=== PATIENT | female | born 1955 | race African-American/Black ===

== ENCOUNTER 2017-03-19 12:20 | Emergency (ER) | payer OTHER ==
[2017-03-19 14:05] LABS: BASOPHIL % 0.2 % (0-2); PLATELET COUNT 192 x10^3mcL (130-400); RED CELL DISTRIBUTION WIDTH 14.2 % (11.5-14.5)
[2017-03-19 14:15] LABS: CALCIUM 11.6 mg/dL (8.5-10.1); CARBON DIOXIDE 29.4 mmol/L (21-32); CREATININE SERUM 1.6 mg/dL (0.6-1.0)
[2017-03-19 14:19] LABS: BILIRUBIN TOTAL 0.56 mg/dL (0.20-1.00); TOTAL PROTEIN, SERUM 7.1 g/dL (6.4-8.2)
[2017-03-19 14:20] LABS: ALBUMIN 3.1 g/dL (3.4-5.0)
[2017-03-19 16:07] VITALS: BP 98/65
== END 2017-03-19 16:07 | disposition home or self-care (01) ==
LOC: ED 12:20
PROVIDERS: Emergency Medicine
DX: J20.9 Acute bronchitis, unspecified (principal); E11.9 Type 2 diabetes mellitus without complications; I10 Essential (primary) hypertension; E83.52 Hypercalcemia; Z79.4 Long term (current) use of insulin
CPT/HCPCS: 36415; 82962; Q0163

== ENCOUNTER 2019-08-05 19:05 | Inpatient (IN) | payer OTHER ==
[~2019-08-05] VITALS: Ht 167.6 cm; Wt 43.5 kg
[2019-08-05 21:02] LABS: PLATELET COUNT 360 x10^3mcL (130-400)
[2019-08-05 21:08] LABS: RED CELL DISTRIBUTION WIDTH 15.9 % (11.5-14.5)
[2019-08-05 21:25] LABS: ALBUMIN 3.5 g/dL (3.4-5.0); BILIRUBIN TOTAL 0.8 mg/dL (0.20-1.00); CALCIUM 10.3 mg/dL (8.5-10.1); CREATININE SERUM 2.1 mg/dL (0.6-1.0); MAGNESIUM 1.9 mg/dL (1.8-2.4); TOTAL PROTEIN, SERUM 7.6 g/dL (6.4-8.2)
[2019-08-05 21:30] LABS: POTASSIUM SERUM 5.8 mmol/L (3.5-5.1)
[2019-08-05 21:45] LABS: BAND NEUTROPHIL 2 % (0-10); BASOPHIL 0 % (0-2); MONOCYTE 4 % (0-7); SEGMENTED NEUTROPHILS 85 % (37-75); rbc morphology (normal/abnorm) ABNORMAL (NORMAL)
[2019-08-06 00:54] LABS: CALCIUM 8.5 mg/dL (8.5-10.1); CARBON DIOXIDE 12.5 mmol/L (21-32); MAGNESIUM 1.4 mg/dL (1.8-2.4); PHOSPHOROUS 3.5 mg/dL (2.5-4.9); POTASSIUM SERUM 4.1 mmol/L (3.5-5.1)
[2019-08-06 01:19] LABS: UA SPECIFIC GRAVITY 1.015 (1.005-1.035); microscopic required? YES; urine erythrocyte TRACE (NEGATIVE)
[2019-08-06 01:28] LABS: AMPHETAMINE QUAL UR NONE DETECTED (See below)
[2019-08-06 03:30] VITALS: BP 156/55
[2019-08-06 05:21] LABS: BILIRUBIN TOTAL 0.4 mg/dL (0.20-1.00); CALCIUM 8.6 mg/dL (8.5-10.1); CARBON DIOXIDE 21.3 mmol/L (21-32); CREATININE SERUM 1.8 mg/dL (0.6-1.0); MAGNESIUM 1.3 mg/dL (1.8-2.4); PHOSPHOROUS 2.1 mg/dL (2.5-4.9); POTASSIUM SERUM 3.6 mmol/L (3.5-5.1)
[2019-08-06 05:22] LABS: ALBUMIN 2.6 g/dL (3.4-5.0); TOTAL PROTEIN, SERUM 6.1 g/dL (6.4-8.2)
[2019-08-06 07:30] VITALS: BP 144/40
[2019-08-06 08:48] LABS: CARBON DIOXIDE 24.4 mmol/L (21-32); CREATININE SERUM 1.6 mg/dL (0.6-1.0); MAGNESIUM 1.4 mg/dL (1.8-2.4); PHOSPHOROUS 2.4 mg/dL (2.5-4.9); POTASSIUM SERUM 3.5 mmol/L (3.5-5.1)
[2019-08-06 12:11] VITALS: BP 140/56
[2019-08-06 12:22] LABS: CALCIUM 8.7 mg/dL (8.5-10.1); CARBON DIOXIDE 27.3 mmol/L (21-32); CREATININE SERUM 1.3 mg/dL (0.6-1.0); MAGNESIUM 1.3 mg/dL (1.8-2.4); PHOSPHOROUS 2.7 mg/dL (2.5-4.9); POTASSIUM SERUM 3.1 mmol/L (3.5-5.1)
[2019-08-06 13:43] LABS: PLATELET COUNT 159 x10^3mcL (130-400); RED CELL DISTRIBUTION WIDTH 13.6 % (11.5-14.5)
[2019-08-06] MEDS ORDERED: METOCLOPRAMIDE H5 M1 PO (14:36)
[2019-08-06] MEDS ORDERED: PANTOPRAZOLE SO40 M1 PO (14:38)
[2019-08-06] MEDS ORDERED: PANCREAZE DR 11 EAC1 PO (14:38)
[2019-08-06] MEDS ORDERED: METHIMAZOLE10 MG PO (14:39)
[2019-08-06] MEDS ORDERED: CARAFATE1 GM/10 ML PO (14:39)
[2019-08-06] MEDS ORDERED: METOPROLOL TAR100 MG PO (14:40)
[2019-08-06] MEDS ORDERED: HUMULIN10 ML SC (14:41)
[2019-08-06] MEDS ORDERED: MIRTAZAPINE15 M2 PO (14:42)
[2019-08-06] MEDS ORDERED: MECLIZINE HYD12.5 MG PO (14:42)
[2019-08-06 15:25] LABS: BAND NEUTROPHIL 0 % (0-10); MONOCYTE 4 % (0-7); SEGMENTED NEUTROPHILS 85 % (37-75)
[2019-08-06 15:26] LABS: rbc morphology (normal/abnorm) ABNORMAL (NORMAL)
[2019-08-06 15:30] VITALS: BP 167/69
[2019-08-06 18:20] VITALS: BP 159/55
[2019-08-06 19:50] VITALS: BP 157/60
[2019-08-07 04:31] VITALS: BP 136/43
[2019-08-07 06:53] LABS: BASOPHIL % 0.1 % (0-2); PLATELET COUNT 141 x10^3mcL (130-400)
[2019-08-07 06:58] LABS: CALCIUM 8.7 mg/dL (8.5-10.1); CARBON DIOXIDE 24.4 mmol/L (21-32); CHLORIDE SERUM 115 mmol/L (98-107); CREATININE SERUM 0.8 mg/dL (0.6-1.0); GFR1 > 60 mL/min; GLUCOSE SERUM 148 mg/dL (74-106); MAGNESIUM 1.6 mg/dL (1.8-2.4); PHOSPHOROUS 2.4 mg/dL (2.5-4.9); POTASSIUM SERUM 3.6 mmol/L (3.5-5.1); SODIUM SERUM 147 mmol/L (136-145)
[2019-08-07 07:00] LABS: T3 TOTAL 1.98 ng/mL
[2019-08-07 07:16] LABS: FREE T4 2.47 ng/dL (0.76-1.46)
[2019-08-07 07:53] VITALS: BP 124/54
[2019-08-07 07:57] LABS: RED CELL DISTRIBUTION WIDTH 15.4 % (11.5-14.5)
[2019-08-07 12:05] VITALS: BP 145/43
[2019-08-07 16:25] VITALS: Ht 167.6 cm; Wt 43.5 kg
[2019-08-07 17:15] VITALS: BP 149/42
[2019-08-07 20:42] VITALS: BP 145/49
[2019-08-08 05:52] VITALS: BP 147/51
[2019-08-08 06:37] LABS: CALCIUM 8.8 mg/dL (8.5-10.1); CARBON DIOXIDE 28.1 mmol/L (21-32); CHLORIDE SERUM 115 mmol/L (98-107); CREATININE SERUM 0.6 mg/dL (0.6-1.0); GFR1 > 60 mL/min; GLUCOSE SERUM 130 mg/dL (74-106); SODIUM SERUM 150 mmol/L (136-145)
[2019-08-08 06:44] LABS: POTASSIUM SERUM 2.7 mmol/L (3.5-5.1)
[2019-08-08 06:57] LABS: BASOPHIL % 0.2 % (0-2); PLATELET COUNT 132 x10^3mcL (130-400)
[2019-08-08 07:31] LABS: RED CELL DISTRIBUTION WIDTH 15.2 % (11.5-14.5)
[2019-08-08 07:46] VITALS: BP 146/53
[2019-08-08 11:59] VITALS: BP 146/39
[2019-08-08 12:46] LABS: CALCIUM 8.8 mg/dL (8.5-10.1); CARBON DIOXIDE 24.7 mmol/L (21-32); CHLORIDE SERUM 110 mmol/L (98-107); CREATININE SERUM 0.6 mg/dL (0.6-1.0); GFR1 > 60 mL/min; GLUCOSE SERUM 176 mg/dL (74-106); POTASSIUM SERUM 4.4 mmol/L (3.5-5.1); SODIUM SERUM 143 mmol/L (136-145)
[2019-08-08 16:23] VITALS: BP 146/57
[2019-08-08 19:59] VITALS: BP 134/45
[2019-08-09 05:34] VITALS: BP 153/50
[2019-08-09 06:54] LABS: CALCIUM 8.5 mg/dL (8.5-10.1); CARBON DIOXIDE 27.6 mmol/L (21-32); CHLORIDE SERUM 110 mmol/L (98-107); CREATININE SERUM 0.5 mg/dL (0.6-1.0); GFR1 > 60 mL/min; GLUCOSE SERUM 244 mg/dL (74-106); SODIUM SERUM 144 mmol/L (136-145)
[2019-08-09 07:15] LABS: POTASSIUM SERUM 2.9 mmol/L (3.5-5.1)
[2019-08-09 09:43] VITALS: BP 145/46
[2019-08-09 10:35] LABS: BASOPHIL % 0.2 % (0-2); PLATELET COUNT 147 x10^3mcL (130-400)
[2019-08-09 10:54] LABS: RED CELL DISTRIBUTION WIDTH 14.9 % (11.5-14.5)
[2019-08-09 11:11] VITALS: BP 139/43
[2019-08-09 11:20] LABS: rbc morphology (normal/abnorm) ABNORMAL (NORMAL)
[2019-08-09 13:26] LABS: rbc morphology (normal/abnorm) ABNORMAL (NORMAL)
[2019-08-09 17:48] VITALS: BP 140/41
[2019-08-09 22:05] VITALS: BP 112/34
[2019-08-10 06:08] VITALS: BP 141/52
[2019-08-10 08:50] VITALS: BP 137/59
[2019-08-10 10:16] VITALS: BP 137/35
[2019-08-10 11:23] LABS: PLATELET COUNT 181 x10^3mcL (130-400)
[2019-08-10 12:06] LABS: IRON 29 ug/dL (50-170); TOTAL IRON BINDING CAPACITY 48 ug/dL (250-450)
[2019-08-10 12:09] LABS: RED CELL DISTRIBUTION WIDTH 18.8 % (11.5-14.5)
[2019-08-10 12:15] LABS: BAND NEUTROPHIL 0 % (0-10); BASOPHIL 0 % (0-2); MONOCYTE 5 % (0-7); SEGMENTED NEUTROPHILS 63 % (37-75)
[2019-08-10 12:16] LABS: rbc morphology (normal/abnorm) ABNORMAL (NORMAL)
[2019-08-10 12:17] LABS: PLATELET MORPHOLOGY PLATELETS DECREASED; schistocyte (helmet cell) 1+
[2019-08-10 13:02] LABS: CALCIUM 8.2 mg/dL (8.5-10.1); CARBON DIOXIDE 27.4 mmol/L (21-32); CHLORIDE SERUM 108 mmol/L (98-107); CREATININE SERUM 0.6 mg/dL (0.6-1.0); GFR1 > 60 mL/min; GLUCOSE SERUM 235 mg/dL (74-106); POTASSIUM SERUM 3.7 mmol/L (3.5-5.1); SODIUM SERUM 142 mmol/L (136-145)
[2019-08-10 13:43] VITALS: BP 155/54
[2019-08-10 15:25] VITALS: BP 160/76
[2019-08-10 20:55] VITALS: BP 160/51
[2019-08-11 06:00] VITALS: BP 144/69
[2019-08-11 08:11] VITALS: BP 128/46
[2019-08-11 12:15] VITALS: BP 125/51
[2019-08-11 16:05] VITALS: BP 147/49
[2019-08-11 17:00] VITALS: BP 139/55
[2019-08-12 05:10] VITALS: BP 135/38
[2019-08-12 06:54] LABS: CALCIUM 8.7 mg/dL (8.5-10.1); CHLORIDE SERUM 108 mmol/L (98-107); CREATININE SERUM 0.8 mg/dL (0.6-1.0); GFR1 > 60 mL/min; GLUCOSE SERUM 198 mg/dL (74-106); POTASSIUM SERUM 4.6 mmol/L (3.5-5.1); SODIUM SERUM 145 mmol/L (136-145)
[2019-08-12 07:53] LABS: BASOPHIL % 0.1 % (0-2); PLATELET COUNT 256 x10^3mcL (130-400)
[2019-08-12 08:14] VITALS: BP 127/53
[2019-08-12 11:41] VITALS: BP 143/56
[2019-08-12 12:47] VITALS: BP 143/56
== END 2019-08-12 15:30 | disposition home health service (06) | DRG 871 ==
LOC: ED 19:05 → DU 22:29 → IC 22:29 → MU 22:29 → IC 23:56 → DU 08-06 18:26 → MU 08-11 12:43
PROVIDERS: Emergency Medicine; Internal Medicine; Internal Medicine Cardiovascular Disease; Internal Medicine Gastroenterology; ADMIT Internal Medicine
PROC: 0DB98ZX Excision of Duodenum, Via Natural or Artificial Opening Endoscopic, Diagnostic (ICD-10-PCS; principal; 2019-08-11 11:30)
PROC: 0DB68ZX Excision of Stomach, Via Natural or Artificial Opening Endoscopic, Diagnostic (ICD-10-PCS; 2019-08-11 11:30)
PROC: 0DJD8ZZ Inspection of Lower Intestinal Tract, Via Natural or Artificial Opening Endoscopic (ICD-10-PCS; 2019-08-11 11:30)
DX: A41.9 Sepsis, unspecified organism (principal); G93.41 Metabolic encephalopathy; N17.0 Acute kidney failure with tubular necrosis; E11.10 Type 2 diabetes mellitus with ketoacidosis without coma; E43 Unspecified severe protein-calorie malnutrition; N39.0 Urinary tract infection, site not specified; Z68.1 Body mass index [BMI] 19.9 or less, adult; E87.5 Hyperkalemia; K57.30 Diverticulosis of large intestine without perforation or abscess without bleeding; K64.8 Other hemorrhoids; I10 Essential (primary) hypertension; E11.40 Type 2 diabetes mellitus with diabetic neuropathy, unspecified; E03.9 Hypothyroidism, unspecified; D50.0 Iron deficiency anemia secondary to blood loss (chronic); R80.9 Proteinuria, unspecified; Z79.84 Long term (current) use of oral hypoglycemic drugs
CPT/HCPCS: 36600; 43235; 45378; 82962; 84439; 87046; 87046-59; 97110-GP; 97116-GP; 97530-GP; G0378; J0696; J1200; J1610; J1815; J2250; J2270; J2310; J2405; J2765; J2916; J3010; J3475; J3480; J3490; J7030; J7050; J7060; J8597; P9016; Q0092; Q0163; Q9966; Q9967

== ENCOUNTER 2019-08-22 02:39 | Inpatient (IN) | payer OTHER ==
[~2019-08-22] VITALS: Ht 167.6 cm; Wt 44.5 kg
[~2019-08-22 02:39] MED LIST: CARAFATE1 GM/10 ML PO; HUMULIN10 ML SC; MECLIZINE HYD12.5 MG PO; METHIMAZOLE10 MG PO; METOCLOPRAMIDE H5 M1 PO; METOPROLOL TAR100 MG PO; MIRTAZAPINE15 M2 PO; PANCREAZE DR 11 EAC1 PO; PANTOPRAZOLE SO40 M1 PO
[2019-08-22 02:42] VITALS: Ht 167.6 cm; Wt 44.5 kg
[2019-08-22 04:21] LABS: microscopic required? NO
[2019-08-22 04:32] LABS: UA SPECIFIC GRAVITY <=1.005 (1.005-1.035); urine erythrocyte NEGATIVE (NEGATIVE)
[2019-08-22 04:59] LABS: BASOPHIL % 0.4 % (0-2); PLATELET COUNT 217 x10^3mcL (130-400); RED CELL DISTRIBUTION WIDTH 19.3 % (11.5-14.5)
[2019-08-22 05:07] LABS: BILIRUBIN TOTAL 0.41 mg/dL (0.20-1.00); CALCIUM 9.4 mg/dL (8.5-10.1); CARBON DIOXIDE 32.1 mmol/L (21-32); TOTAL PROTEIN, SERUM 7.4 g/dL (6.4-8.2)
[2019-08-22 05:08] LABS: ALBUMIN 3.3 g/dL (3.4-5.0)
[2019-08-22 09:20] VITALS: BP 109/47
[2019-08-22 12:43] VITALS: BP 128/60
[2019-08-22 17:04] VITALS: BP 138/46
[2019-08-22 19:27] VITALS: BP 138/48
[2019-08-23 05:15] VITALS: BP 153/58
[2019-08-23 07:03] LABS: CALCIUM 9.2 mg/dL (8.5-10.1); CARBON DIOXIDE 25.5 mmol/L (21-32); CHLORIDE SERUM 105 mmol/L (98-107); CREATININE SERUM 0.9 mg/dL (0.6-1.0); GFR1 > 60 mL/min; GLUCOSE SERUM 345 mg/dL (74-106); POTASSIUM SERUM 4.8 mmol/L (3.5-5.1); SODIUM SERUM 142 mmol/L (136-145)
[2019-08-23 08:17] VITALS: BP 140/64
[2019-08-23 09:07] LABS: BASOPHIL % 0.3 % (0-2); PLATELET COUNT 203 x10^3mcL (130-400)
[2019-08-23 09:09] LABS: RED CELL DISTRIBUTION WIDTH 19.5 % (11.5-14.5)
[2019-08-23 12:36] VITALS: BP 137/45
[2019-08-23 17:18] VITALS: BP 127/79
[2019-08-23 20:57] VITALS: BP 137/58
[2019-08-24 06:05] VITALS: BP 128/60
[2019-08-24 07:12] LABS: BASOPHIL % 0.4 % (0-2); PLATELET COUNT 184 x10^3mcL (130-400)
[2019-08-24 07:20] LABS: CALCIUM 8.6 mg/dL (8.5-10.1); CARBON DIOXIDE 27.5 mmol/L (21-32); CHLORIDE SERUM 110 mmol/L (98-107); CREATININE SERUM 0.5 mg/dL (0.6-1.0); GFR1 > 60 mL/min; GLUCOSE SERUM 170 mg/dL (74-106); POTASSIUM SERUM 3.4 mmol/L (3.5-5.1); SODIUM SERUM 144 mmol/L (136-145)
[2019-08-24 07:21] LABS: RED CELL DISTRIBUTION WIDTH 19.4 % (11.5-14.5)
[2019-08-24 07:58] VITALS: BP 139/62
[2019-08-24 11:49] VITALS: BP 139/50
[2019-08-24 16:59] VITALS: BP 133/42
[2019-08-24 17:57] VITALS: BP 133/42
[2019-08-24 20:28] VITALS: BP 132/47
[2019-08-25 05:24] VITALS: BP 124/55
[2019-08-25 06:40] LABS: BASOPHIL % 0.3 % (0-2); PLATELET COUNT 190 x10^3mcL (130-400)
[2019-08-25 06:42] LABS: RED CELL DISTRIBUTION WIDTH 18.9 % (11.5-14.5)
[2019-08-25 08:11] VITALS: BP 122/55
[2019-08-25 10:36] LABS: CALCIUM 10.1 mg/dL (8.5-10.1); CARBON DIOXIDE 27.3 mmol/L (21-32); CREATININE SERUM 0.6 mg/dL (0.6-1.0); GFR1 > 60 mL/min; GLUCOSE SERUM 65 mg/dL (74-106)
[2019-08-25 11:01] LABS: CHLORIDE SERUM 109 mmol/L (98-107); POTASSIUM SERUM 5.1 mmol/L (3.5-5.1); SODIUM SERUM 145 mmol/L (136-145)
[2019-08-25 12:19] VITALS: BP 132/58
== END 2019-08-25 15:37 | disposition home health service (06) | DRG 637 ==
LOC: ED 02:39 → DU 05:58
PROVIDERS: Emergency Medicine; ADMIT Internal Medicine
DX: E11.65 Type 2 diabetes mellitus with hyperglycemia (principal); N17.0 Acute kidney failure with tubular necrosis; E86.0 Dehydration; R19.7 Diarrhea, unspecified; R63.0 Anorexia; K21.9 Gastro-esophageal reflux disease without esophagitis; E05.00 Thyrotoxicosis with diffuse goiter without thyrotoxic crisis or storm; D50.9 Iron deficiency anemia, unspecified; I12.9 Hypertensive chronic kidney disease with stage 1 through stage 4 chronic kidney disease, or unspecified chronic kidney disease; N18.9 Chronic kidney disease, unspecified; E11.22 Type 2 diabetes mellitus with diabetic chronic kidney disease; Z83.3 Family history of diabetes mellitus; Z82.3 Family history of stroke; Z79.4 Long term (current) use of insulin; Z88.0 Allergy status to penicillin; Z88.8 Allergy status to other drugs, medicaments and biological substances
CPT/HCPCS: 36600; 82962; 84439; 87804; 97112-GP; 97116-GP; 97530-GP; C9113; G0378; J1815; J2270; J2405; J2550; J2765; J2916; J3490; J7030; J8597; Q0092

== ENCOUNTER 2019-08-29 01:04 | Inpatient (IN) | payer OTHER ==
[~2019-08-29] VITALS: Ht 167.6 cm; Wt 43.1 kg
--- NOTE | 2019-08-29 01:29 | NUR ---
PT PRESENTS TO ED FOR C/C OF HIGH BS. PT REPORT SHE WAS FEELING DIZZY AND UNWELL AT HOME. PT DECIDED TO CALL 911, [facility] TESTED BS, REPORTS IT WAS "HIGH". PT TOLD SHE WOULD BE TAKEN TO [place], BUT DID NOT WANT TO GO TO [place]. PT'S SISTER DROVE HER TO [facility] [place] [facility] FOR HIGH BS. PT IS AWAKE, AAOX4, RESP E/U, DENIES SOB OR CHEST PAIN. PT REPORTS HAVING PAIN IN HER COCCYX, STATES "I HAVE A WOUND." UPON EXAMINATION OF AREA, NO OPEN OR ENCLOSED WOUND NOTED. MILD EXCORIATION NOTED TO THE AREA. PT HAS A RED LINEAR MARKING NOTED TO THE LEFT SIDE OF HER NECK. PT REPORTS "I HAD AN EJ IN PLACE BY [facility] ABOUT A WEEK AGO." AREA IS WARM AND TENDER TO TOUCH. NO DISCHARGE NOTED. DENIES FEVER OR ANY OTHER RELATED SYMPTOMS. NAD NOTED. SISTER AT BEDSIDE.
--- NOTE | 2019-08-29 01:30 | NUR ---
DR. WILCOX AT BEDSIDE FOR MSE.
--- NOTE | 2019-08-29 02:03 | NUR ---
PT REFUSING TO HAVE BLOOD DRAWN AT THIS TIME. REQUESTS FOR LAB TO COME BACK FOR DRAW IN 15 MINUTES. REPORTS SHE DOESN'T WANT TO FEEL ANYMORE PAIN. PT IS AWAKE, AAOX4, RESP E/U, NAD NOTED.
--- NOTE | 2019-08-29 02:28 | NUR ---
PT LAYING IN [place], AWAKE, REPORTS SHE HAS GENERALIZED PAIN 10/10, REQUESTING "PAIN PILL". DR. WILCOX MADE AWARE.
[2019-08-29 02:31] LABS: BASOPHIL % 0.4 % (0-2); PLATELET COUNT 234 x10^3mcL (130-400)
--- NOTE | 2019-08-29 02:31 | NUR ---
PT MADE AWARE OF NEED FOR URINE, GIVEN CALL LIGHT IN HER HAND TO CALL FOR ASSISTANCE TO USE BEDPAN.
[2019-08-29 02:32] LABS: RED CELL DISTRIBUTION WIDTH 18.2 % (11.5-14.5)
--- NOTE | 2019-08-29 02:50 | NUR ---
PT MADE AWARE OF NEED FOR URINE. REPORTS SHE DOES NOT HAVE TO URINATE AT THIS TIME. WILL TRY AGAIN.
[2019-08-29 02:57] LABS: BILIRUBIN TOTAL 0.41 mg/dL (0.20-1.00); CARBON DIOXIDE 25.5 mmol/L (21-32); CREATININE SERUM 1.2 mg/dL (0.6-1.0); FREE T4 2.27 ng/dL (0.76-1.46); TOTAL PROTEIN, SERUM 7.6 g/dL (6.4-8.2)
--- NOTE | 2019-08-29 04:08 | NUR ---
PT LAYING IN GURNEY, SLEEPING COMFORTABLY, RESPE/U, GOOD CHEST RISE AND FALL NOTED. NAD NOTED.
--- NOTE | 2019-08-29 04:35 | NUR ---
PT IS SLEEPING IN GURNEY, RESP E/U, NAD NOTED, GOOD CHEST RISE AND FALL NOTED.
--- NOTE | 2019-08-29 04:53 | NUR ---
PT MEDICATED PER MD ORDER. PT VERBALIZED UNDERSTANDING OF MEDICATION PRIOR TO ADMINISTRATION.
--- NOTE | 2019-08-29 05:01 | NUR ---
PT ASSISTED TO BEDPAN FOR BM. UNABLE TO PROVIDE URINE AT THIS TIME.
--- NOTE | 2019-08-29 05:07 | NUR ---
DR. WILCOX MADE AWARE OF PT UNABLE TO PROVIDE URINE SAMPLE.
--- NOTE | 2019-08-29 05:36 | NUR ---
PT SLEEPING IN GURNEY, RESP E/U, GOOD CHEST RISE AND FALL NOTED. NAD NOTED.
--- NOTE | 2019-08-29 06:17 | NUR ---
PT MEDICATED PER MD ORDER. PT VERBALIZED UNDERSTANDING OF MEDICATION PRIOR TO ADMINISTRATION. PT IS LAYING IN GURNEY, AWAKE, AAOX4, RESP E/U, NAD NOTED.
--- NOTE | 2019-08-29 06:37 | NUR ---
PT IS LAYING IN GURNEY, SLEEPING, RESP E/U, GOOD CHEST RISE AND FALL NOTED. NAD NOTED.
--- NOTE | 2019-08-29 07:14 | NUR ---
REPORT CALLED TO LOIDA AVENDAÑO TO ASSUME CARE FOR PT.
[2019-08-29 07:29] VITALS: BP 123/51
[2019-08-29 07:30] VITALS: BP 103/50
--- NOTE | 2019-08-29 07:30 | NUR ---
RECEIVED PATIENT FROM ED. PATIENT A/A/OX4; CLEAR SPEECH. C/O DIZZINESS AND FOUND BLOOD SUGAR OVER 500 AT HOME, WITH ABD PAIN AND NAUSEA. NO VOMITING. IVHL'D TO R HAND. LEGALLY BLIND GRACE EYES. BODY WEIGHT 43 KG. BREATHING SOUND CLEAR GRACE. O2 SAT 99% ON RA. HR = 95. ABD FLAT/SOFT. BOWEL SOUND ACTIVE. URINE INCONT AT TIMES. SMALL OPENED WOUND TO COCCYX AREA. NO DRAINAGE NOTED. SKIN WARM. NO EDEMA NOTED. CALL LIGHT IN REACH.
--- NOTE | 2019-08-29 07:41 | NUR ---
SPOKE WITH DR FLAHERTY AND REPORTED PATIENT'S MOST RECENT LABS AND VITALS. NEW ORDERS RECEIVED. WILL CARRY OUT ORDERS. PRIMARY RN KATERYNA MADE AWARE.
--- NOTE | 2019-08-29 09:00 | NUR ---
PATIENT FINISHED 95% OF CCHO DIET BREAKFAST BY FEEDING. HAD A LOOSE BM. C/O ABD PAIN BEFORE BREAKFAST, BUT STATED NO ABD PAIN AND NAUSEA NOW. IVF OF NS 100CC/HR.
--- NOTE | 2019-08-29 11:16 | NUR ---
SLEEPING NOW. NO S/S OF PAIN. STATED ABD PAIN RELEASES BY FOOD.
[2019-08-29 11:19] VITALS: BP 115/47
--- NOTE | 2019-08-29 11:45 | NUR ---
B/S = 90; APPLE JUICE 120CC PO GIVEN.
--- NOTE | 2019-08-29 12:30 | NUR ---
DR. FLAHERTY CAME TO SEE PATIENT. NEW ORDER OF TRANSFER TO [facility] WRITTEN.
--- NOTE | 2019-08-29 13:00 | NUR ---
FINISHED 50% OF [facility] LUNCH BY FEEDING. C/O LEGS PAIN ON 05/15; NORCO 5/325 PO GIVEN.
[2019-08-29 15:22] VITALS: BP 120/53
--- NOTE | 2019-08-29 16:00 | NUR ---
TRANSFERED TO [facility], RM 254B PER ORDER. REPORT GIVEN TO LOIDA CLARK.
--- NOTE | 2019-08-29 16:05 | NUR ---
RECEIVED PATIENT FROM [facility] ICU NURSE PATIENT IN BED A&O X4, 98% RA, IV IN R WRIST INTACT NO REDNESS OR EDEMA NOTED. V/S TAKEN. ORIENTED PATIENT TO SURROUNDINGS. PT VERBALIZED UNDERSTANDING. PT DENIES PAIN AT THIS TIME. ALL NEEDS ATTENDED TO . BED IN LOWEST POSITION CALL LIGHT WITHIN REACH. WILL CONTINUE TO MONITOR.
[2019-08-29 16:10] VITALS: BP 134/63
--- NOTE | 2019-08-29 17:14 | NUR ---
PATIENT LYING IN BED DENIES PAIN AT THIS TIME, SISTER AT BEDSIDE. ADMINISTERED SCHEDULEDS MEDS PT TOLERATED WELL NO ADVERSE REACTIONS NOTED. ALL QUESTIONS AND CONCERNS ADDRESSED AT THIS TIME. BED IN LOWEST POSITION CALL LIGHT WITHIN REACH, PUT A STICKER FOR PATIENT TO FEEL CALL LIGHT . PATIENT VERBALIZED UNDERSTANDING. ALL NEEDS ATTENDED TO. WILL CONTINUE TO MONITOR.
--- NOTE | 2019-08-29 18:55 | NUR ---
PATIENT SITTING UP IN BED WITH SISTER AT BEDSIDE. PATIENT DENIES ANY PAIN AT THIS TIME. IN ON R WRIST IN TACT NO REDNESS OR EDEMA NOTED. NO S/S OF RESPIRATORY DISTRESS. ALL NEEDS ATTENDED TO AT THIS TIME. BED IN LOWEST POSITION CALL LIGHT WITHIN REACH. WILL ENDORSE CARE TO OPEN TENTER OPERATOR NURSE.
--- NOTE | 2019-08-29 19:30 | NUR ---
PT IS A/O x4. BLIND ON GRACE EYES. ON TELE #24, NSR. DENIES ANY CHEST PAIN OR PRESSURE. PULSES ARE PRESENT. NO EDEMA NOTED. LUNGS CLEAR IN ALL FEILDS. ON RA, DENIES ANY SOB. EQUAL CHEST RISE AND FALL. NO SIGN OF RESP DISTRESS. BOWEL SOUNDS ARE ACTIVE x4. GENERAL WEAKNESS. OPTIFOAM ON COCCYX AREA FOR PROTECTION. SMALL, CIRCULAR, SILVER SKIN NOTED. SKIN INTACT. DENIES ANY PAIN AT THIS TIME. IV ON RH INTACT AND PATENT. NO SIGN OF INFILTRATION OR IRRITATION NOTED. SISTER IS AT BEDSIDE. BED IS AT LOWEST SETTING. CALL LIGHT IN HAND. WILL CONTINUE TO MONITOR.
[2019-08-29 21:30] VITALS: BP 147/50
--- NOTE | 2019-08-30 01:53 | NUR ---
PT IS RESTING IN BED WITH BOTH EYES CLOSED. BREATHING EVEN AND UNLABORED. NO SIGN OF RESP DISTRESS. EQUAL CHEST RISE AND FALL. IV INTACT. BED IS AT LOWEST SETTING. CALL LIGHT IN HANDS. WILL CONTINUE TO MONITOR.
[2019-08-30 05:27] VITALS: BP 135/60
[2019-08-30 06:22] LABS: BASOPHIL % 0.2 % (0-2); PLATELET COUNT 228 x10^3mcL (130-400)
--- NOTE | 2019-08-30 06:26 | NUR ---
PT IS RESTING IN BED WITH BOTH EYES CLOSED. BREATHING EVEN AND UNLABORED. NO SIGN OF DISTRESS NOTED. NO ACUTE EVENT OCCURED AT NIGHT. BED IS AT LOWEST SETTING. CALL LIGHT IN HAND. WILL ENDORSE TO AM NURSE.
[2019-08-30 06:29] LABS: CALCIUM 9.5 mg/dL (8.5-10.1); CARBON DIOXIDE 25.8 mmol/L (21-32); CHLORIDE SERUM 111 mmol/L (98-107); CREATININE SERUM 0.7 mg/dL (0.6-1.0); GFR1 > 60 mL/min; GLUCOSE SERUM 82 mg/dL (74-106); POTASSIUM SERUM 4.7 mmol/L (3.5-5.1); SODIUM SERUM 146 mmol/L (136-145)
[2019-08-30 06:41] LABS: RED CELL DISTRIBUTION WIDTH 18.6 % (11.5-14.5)
--- NOTE | 2019-08-30 07:30 | NUR ---
RECEIVED PATIENT IN BED APPEARS TO BE RESTING WELL, AROUSED TO VERBAL STIMULI EASILY. IVF INFUSING WELL, SITE PATENT. PATIENT INS BLIND BILATERALY. TELE 24 NSR. RESP EVEN AND UNLABORED, LUNGS CLEAR ON ROOM AIR. GENERALIZED WEAKNESS NOTED. OPTIFOAM NOTED ON COCCYX. WILL CONTINUE TO MONITOR.
[2019-08-30 07:52] VITALS: BP 127/49
[2019-08-30 11:52] VITALS: BP 129/67
[2019-08-30 14:16] VITALS: BP 129/67
--- NOTE | 2019-08-30 14:58 | NUR ---
Initial Nutrition Assessment: 254T/B WYATT SAEZ HR Dx: DKA PMHx: insulin dependent DM, HTN, pancreatitis, thyroid disease and anorexia PSHx: none Labs: NA 146H, BUN 28H, A1C 10.0H, HGB 9.7L Meds: Ambien, Ativan, D 50%, Humulin, Lopressor, morphine, norco, pancrease capsule, phenegran, reglan, Remeron, NS Diet: CCHO, MS PO intake since admission: (08/30) breakfast 50%, (08/29) dinner 80% Ht: 167.64 cm (66") Wt: 43 kg (95#) BMI: 15.3 kg/m2 Bed scale: 43 kg IBW: 130# (59 kg) %IBW: 73 UBW: 43 kg Age: 63/F Food Allergies: NKFA Skin: small circular silver skin noted on coccyx area Matt: 14 Edema: none GI: Last BM: 08/29 Per H&P, Pt is a 63YO F with insulin dependent DM, HTN, pancreatitis, thyroid disease and anorexia. Patient was recently D/C from hospital and given a new insulin regimen. RD Note (08/30): Patient appears emaciated, malnourished and said that she ate oatmeal for breakfast this morning. Patient was in the hospital recently and DM diet education was provided to her. Patient is to be D/C today. Spoke with finger cobbler Elda about starting ONS Glucerna BID. Problem with: N/V/D/C: none at this time Problems with: Chewing: Swallowing: none Current appetite: good Recent wt change: loss of 1.4 kg since 08/23 %wt change: 3.1 Vitamin/Supplement use: Glucerna at home [facility] Physical activity: none Nutrition education given: none at this time Food-drug interactions: none Education given: n/a Estimated Nutritional Needs Based on current body weight (43kg) Energy: 3645-6241 kcal/day (35-40 kcal/kg for malnutrition) Protein: 52-61 g/day (1.2-1.4 g/kg for malnutrition) Fluid: 0309-4793 mL/day (1 mL/kcal) Nutrition Diagnosis: 1. Malnutrition related to medical condition, chronic poor PO, weight loss as evidenced by BMI 15.3 kg.m2 Intervention 1. Recommend continuing CCHO diet with Glucerna BID. Monitor/Evaluate Goal: PO intake at least 75% of estimated needs Monitor: PO intake, Labs, GI function F/U in 2-3 days as high risk
--- NOTE | 2019-08-30 14:59 | NUR ---
1. Recommend continuing CCHO diet with Glucerna BID.
--- NOTE | 2019-08-30 15:45 | NUR ---
PATIENT SITTING UP IN BED. HL AND TELE DC'D. AWAITING MAG'S SISTER TO ARRIVE TO PICK PATIENT UP. SHOULD BE HERE IN ABOUT 15 MINS PER SISTER. CONDITION APPEARS STABLE.
--- NOTE | 2019-08-30 16:00 | NUR ---
PATIENT REFUSED TO ALLOW NURSE TO TAKE PICTURE OF HER COCCYX. PATIENT STARTED TO YELL AND CRY DID NOT WANT PICTURE TAKE.N,
--- NOTE | 2019-08-30 16:36 | NUR ---
I HAVE REVIEWED THE DATA COLLECTION BY WAFER POLISHER (NAME): ENTERED ON (DATE/TIME): I CONCUR WITH THE DATA AND ANY EXCEPTIONS OR COMMENTS ARE LISTED BELOW: PATIENT'S PLAN OF CARE WAS DISCUSSED AND REVIEWED WITH WAFER POLISHER: KULDIP YOU
--- NOTE | 2019-08-30 16:41 | NUR ---
PATIENT SITTING UP IN BED, C/O LOWER BACK PAIN, 10/10 ON THE PAIN SCALE. MEDICATED WITH NORCO PO ORDERED. WILL MONITOR FOR EFFECT.
--- NOTE | 2019-08-30 16:57 | NUR ---
PATIENT READY FOR D/C HOME. HL AND TELE DC'D. PATIENT'S SISTER HERE TO PICK PATIENT UP AT THIS TIME. DISCHARGE INSTRUCTIONS GIVEN. PERSONAL BELONGINGS LIST SIGNED. CONDITION APPEARS STABLE.
[2019-09-07 15:01] VITALS: Ht 167.6 cm; Wt 43.1 kg
== END 2019-08-30 17:17 | disposition home health service (06) | DRG 638 ==
LOC: ED 01:04 → IC 04:56 → DU 04:56 → IC 05:22 → DU 16:09
PROVIDERS: Emergency Medicine; ADMIT Internal Medicine
DX: E10.10 Type 1 diabetes mellitus with ketoacidosis without coma (principal); N17.9 Acute kidney failure, unspecified; I10 Essential (primary) hypertension; R63.0 Anorexia; E05.90 Thyrotoxicosis, unspecified without thyrotoxic crisis or storm; N28.9 Disorder of kidney and ureter, unspecified; Z79.4 Long term (current) use of insulin
CPT/HCPCS: 82962; 84439; C9113; G0378; J1815; J7030; J8597

== ENCOUNTER 2019-11-25 06:06 | Inpatient (IN) | payer OTHER ==
[~2019-11-25] VITALS: Ht 167.6 cm; Wt 44.5 kg
[2019-11-25 06:11] VITALS: Ht 167.6 cm; Wt 44.5 kg
[2019-11-25 07:51] LABS: BASOPHIL % 0.1 % (0-2); PLATELET COUNT 172 x10^3mcL (130-400)
[2019-11-25 07:52] LABS: RED CELL DISTRIBUTION WIDTH 14.7 % (11.5-14.5)
[2019-11-25 08:03] LABS: CALCIUM 9.4 mg/dL (8.5-10.1); CARBON DIOXIDE 26.4 mmol/L (21-32); CREATININE SERUM 1.2 mg/dL (0.6-1.0); POTASSIUM SERUM 4.7 mmol/L (3.5-5.1)
[2019-11-25 08:15] LABS: BILIRUBIN TOTAL 0.6 mg/dL (0.20-1.00); C REACTIVE PROTEIN 0.6 mg/dL (<=0.9); TOTAL PROTEIN, SERUM 6.5 g/dL (6.4-8.2)
[2019-11-25 08:18] LABS: FREE T4 5.44 ng/dL (0.76-1.46)
[2019-11-25 08:19] LABS: ALBUMIN 2.8 g/dL (3.4-5.0); FREE THYROXINE INDEX 9.5 ug/dL (1.4-4.5); T4(THYROXINE) 21.7 ug/dL (4.7-13.3)
[2019-11-25 08:39] LABS: T3 TOTAL 5.72 ng/mL
[2019-11-25 09:29] LABS: ERYTHROCYTE SED RATE 58 mm/hr (0-30)
[2019-11-25 11:07] LABS: microscopic required? YES; urine erythrocyte TRACE (NEGATIVE)
[2019-11-25 14:19] VITALS: BP 156/54
[2019-11-25 17:37] VITALS: BP 138/36; BP 161/68
[2019-11-25 21:36] VITALS: BP 139/70
[2019-11-26 05:41] VITALS: BP 135/55
[2019-11-26 07:22] LABS: BASOPHIL % 0.1 % (0-2); PLATELET COUNT 164 x10^3mcL (130-400); RED CELL DISTRIBUTION WIDTH 14.1 % (11.5-14.5)
[2019-11-26 07:49] LABS: CALCIUM 10.3 mg/dL (8.5-10.1); CARBON DIOXIDE 26.5 mmol/L (21-32); CHLORIDE SERUM 109 mmol/L (98-107); CREATININE SERUM 0.7 mg/dL (0.6-1.0); GFR1 > 60 mL/min; GLUCOSE SERUM 90 mg/dL (74-106); POTASSIUM SERUM 4.9 mmol/L (3.5-5.1); SODIUM SERUM 145 mmol/L (136-145)
[2019-11-26 08:28] VITALS: BP 154/70
[2019-11-26 12:51] VITALS: BP 131/64
[2019-11-26 16:10] VITALS: BP 142/56
[2019-11-26 20:36] VITALS: BP 145/52
[2019-11-27 05:37] VITALS: BP 127/53
[2019-11-27 06:16] LABS: BASOPHIL % 0.4 % (0-2); PLATELET COUNT 133 x10^3mcL (130-400); RED CELL DISTRIBUTION WIDTH 14.1 % (11.5-14.5)
[2019-11-27 06:36] LABS: CALCIUM 8.7 mg/dL (8.5-10.1); CARBON DIOXIDE 26.8 mmol/L (21-32); CHLORIDE SERUM 109 mmol/L (98-107); CREATININE SERUM 0.9 mg/dL (0.6-1.0); GFR1 > 60 mL/min; GLUCOSE SERUM 258 mg/dL (74-106); POTASSIUM SERUM 3.7 mmol/L (3.5-5.1); SODIUM SERUM 142 mmol/L (136-145)
[2019-11-27 08:04] VITALS: BP 123/42
[2019-11-27 12:01] VITALS: BP 128/47
[2019-11-27 12:29] LABS: BASOPHIL % 0.1 % (0-2); PLATELET COUNT 135 x10^3mcL (130-400); RED CELL DISTRIBUTION WIDTH 14.2 % (11.5-14.5)
[2019-11-27 17:19] VITALS: BP 141/43
[2019-11-27 20:14] VITALS: BP 135/45
[2019-11-28 06:02] VITALS: BP 150/45
[2019-11-28 06:42] LABS: BASOPHIL % 0.1 % (0-2); PLATELET COUNT 139 x10^3mcL (130-400); RED CELL DISTRIBUTION WIDTH 14.1 % (11.5-14.5)
[2019-11-28 06:47] LABS: CALCIUM 9.8 mg/dL (8.5-10.1); CARBON DIOXIDE 26.1 mmol/L (21-32); CHLORIDE SERUM 113 mmol/L (98-107); CREATININE SERUM 0.8 mg/dL (0.6-1.0); GFR1 > 60 mL/min; GLUCOSE SERUM 181 mg/dL (74-106); SODIUM SERUM 147 mmol/L (136-145)
[2019-11-28 08:20] VITALS: BP 132/50
[2019-11-28 16:57] VITALS: BP 127/43
[2019-11-28 20:09] VITALS: BP 143/55
[2019-11-29 06:33] VITALS: BP 142/56
[2019-11-29 09:19] VITALS: BP 153/53
[2019-11-29 13:58] VITALS: BP 153/45
[2019-11-29 17:53] VITALS: BP 127/36
[2019-11-29 21:47] VITALS: BP 109/39
[2019-11-30 06:22] VITALS: BP 140/72
[2019-11-30 08:51] VITALS: BP 143/47
[2019-11-30 14:10] VITALS: BP 138/49
[2019-11-30 14:27] VITALS: BP 138/49
[2019-12-09] MEDS ORDERED: LEV250 PO (15:00)
[2019-12-09] MEDS ORDERED: CLINDAMYCI300 MG/51 PO (15:03)
[2019-12-09] MEDS ORDERED: INDERAL LA60 MG PO (15:04)
[2019-12-09] MEDS ORDERED: DRAMAMINE LESS25 MG PO (15:05)
[2019-12-09] MEDS ORDERED: NOR10T PO (15:05)
[2019-12-09] MEDS ORDERED: TAPAZOLE10 MG PO (15:05)
== END 2019-11-30 16:34 | disposition home health service (06) | DRG 592 ==
LOC: ED 06:06 → DU 11:58 → EDBEDREQ 12:04 → DU 13:07
PROVIDERS: Emergency Medicine; ADMIT Internal Medicine
DX: L89.623 Pressure ulcer of left heel, stage 3 (principal); N17.0 Acute kidney failure with tubular necrosis; N39.0 Urinary tract infection, site not specified; Z68.1 Body mass index [BMI] 19.9 or less, adult; L89.611 Pressure ulcer of right heel, stage 1; L89.151 Pressure ulcer of sacral region, stage 1; I48.91 Unspecified atrial fibrillation; E86.0 Dehydration; E05.90 Thyrotoxicosis, unspecified without thyrotoxic crisis or storm; E11.65 Type 2 diabetes mellitus with hyperglycemia; E11.51 Type 2 diabetes mellitus with diabetic peripheral angiopathy without gangrene; E11.319 Type 2 diabetes mellitus with unspecified diabetic retinopathy without macular edema; E11.42 Type 2 diabetes mellitus with diabetic polyneuropathy; I10 Essential (primary) hypertension; M54.5 Low back pain; G89.29 Other chronic pain; K21.9 Gastro-esophageal reflux disease without esophagitis; F41.9 Anxiety disorder, unspecified; Z79.4 Long term (current) use of insulin; Z99.3 Dependence on wheelchair; Z88.0 Allergy status to penicillin; Z88.1 Allergy status to other antibiotic agents; Z88.2 Allergy status to sulfonamides; Z83.3 Family history of diabetes mellitus; Z89.422 Acquired absence of other left toe(s)
CPT/HCPCS: 82962; 84439; 87046; 87046-59; 97116-GP; C9113; G0378; J1815; J1956; J3490; J7030; J8597; Q0092

== ENCOUNTER 2019-12-23 21:34 | Inpatient (IN) | payer OTHER ==
[~2019-12-23] VITALS: Ht 167.6 cm; Wt 41.8 kg
[~2019-12-23 21:34] MED LIST changes: +CLINDAMYCI300 MG/51 PO; +DRAMAMINE LESS25 MG PO; +INDERAL LA60 MG PO; +LEV250 PO; +NOR10T PO; +TAPAZOLE10 MG PO
--- NOTE | 2019-12-23 22:00 | NUR ---
GAVE ORDER TO ADMIT PT TO THE ICU. PT YELLING AND SCREAMING WITH CONFUSION NOTED AT THIS TIME.
--- NOTE | 2019-12-23 22:00 | NUR ---
FAMILY TOOK PT WHEELCHAIR HOME PATIENT AWARE
[2019-12-23 22:39] LABS: BASOPHIL % 0.2 % (0-2); PLATELET COUNT 213 x10^3mcL (130-400); RED CELL DISTRIBUTION WIDTH 14.8 % (11.5-14.5)
[2019-12-23 23:10] LABS: ALBUMIN 3.4 g/dL (3.4-5.0); BILIRUBIN TOTAL 0.7 mg/dL (0.20-1.00); CALCIUM 9.9 mg/dL (8.5-10.1); CARBON DIOXIDE 25.1 mmol/L (21-32); CREATININE SERUM 1.4 mg/dL (0.6-1.0); TOTAL PROTEIN, SERUM 8.5 g/dL (6.4-8.2)
[2019-12-23 23:14] LABS: POTASSIUM SERUM 6.9 mmol/L (3.5-5.1)
[2019-12-24] VITALS (7 sets, daily range): BP systolic 109–151; BP diastolic 44–85; Ht 167.6 cm; Wt 41.8 kg
[2019-12-24 00:28] LABS: CHOLESTEROL/HDL RATIO 3.4; MAGNESIUM 2.1 mg/dL (1.8-2.4)
--- NOTE | 2019-12-24 00:35 | NUR ---
INSULIN GTT STARTED PER MD ORDER AT 1UNIT/HR PT REMAIN TO HAVE CRITICAL HI ON ACCUCHECK MACHINE WILL CONTINUE TO MONITOR PT FOR S/S OF HYPER/HYPOGLACEMIA
--- NOTE | 2019-12-24 01:00 | NUR ---
SISTER JIAN'S CELL # [phone]
--- NOTE | 2019-12-24 01:11 | NUR ---
REPORT GIVEN TO LOIDA MONTERO (ICU) TO ASSUME CARE OF THE PT.
--- NOTE | 2019-12-24 02:00 | NUR ---
Received pt from ED, spoke to Dr. Arboleda with new orders. New order noted and carried out. Will continue to monitor.
--- NOTE | 2019-12-24 03:00 | NUR ---
CALLED ZULAY TO NO PROCTOR. STATED SHE WOULD "GIVE HER A FEW MINS" AWAITING ORDER TO BE VERIFIED.
[2019-12-24 03:07] LABS: CALCIUM 10.7 mg/dL (8.5-10.1); CARBON DIOXIDE 26.4 mmol/L (21-32); CREATININE SERUM 1.2 mg/dL (0.6-1.0); POTASSIUM SERUM 4.8 mmol/L (3.5-5.1)
--- NOTE | 2019-12-24 03:18 | NUR ---
Admitted this 64 y/o female from ED via rpillow. Alert and oriented x4. Blind both eyes. No respiratory distress noted on room air. Denies pain. Denies n/v. Generalized weakness noted. Uses wheelchair at home. Lives with twin sister. Admission assessment done. Noted black dry wound on the left heel. Insulin drip @ 5units/hr infusing started from ED. Sinus tachycardia on the monitor. Will cont.to monitor. Call light within reach.
[2019-12-24 03:49] LABS: microscopic required? YES; urine erythrocyte 2+ (NEGATIVE)
[2019-12-24 04:06] LABS: AMPHETAMINE QUAL UR NONE DETECTED (See below)
--- NOTE | 2019-12-24 05:12 | NUR ---
Afebrile. No significant change in condition noted. Denies n/v. Pain controlled. Weight shift assistance provided. Kept pressure off back and bony prominences. Kept skin clean and dry. Heels floated. In no apparent distress.
--- NOTE | 2019-12-24 05:23 | NUR ---
Spoke to regarding pt EKG results A.fib with new orders to give the 0900 dose of Inderal 60mg po now instead of 0900. New orders noted and carried out. Will continue to monitor.
--- NOTE | 2019-12-24 07:10 | NUR ---
RECEIVED PT FROM PREP COOK NURSE. PT RESTING IN BED, AOX4, RESP E/U ON RA. C/O OF LEG PAIN AT THIS TIME. ASSISTED TO COMFORTABLE POSITION. IV TO LAC PATENT/INTACT, IV 1/2 NS INFUSING WELL AT 100 ML/HR. [place] IN PLACE, SECURED/INTACT, DRAINING YELLOW URINE TO GRAVITY. DRESSING TO L HEEL CDI. BED IN LOWEST POSITION AND CALL LIGHT WITHIN REACH. WILL CONTINUE TO MONITOR.
[2019-12-24 08:04] LABS: CALCIUM 10.1 mg/dL (8.5-10.1); CARBON DIOXIDE 22.3 mmol/L (21-32); POTASSIUM SERUM 4.6 mmol/L (3.5-5.1)
--- NOTE | 2019-12-24 08:14 | NUR ---
ECHOCARDIOGRAM PENDING-DONE 11/26/19-COPY IN CHART
--- NOTE | 2019-12-24 12:56 | NUR ---
PT SEEN BY DR. CARDENAS. UPDATES PROVIDED. ORDERED FOR B.
--- NOTE | 2019-12-24 14:18 | NUR ---
KUB AT BEDSIDE COMPLETED AT THIS TIME.
--- NOTE | 2019-12-24 15:39 | NUR ---
PT SEEN BY DR. LEYVA AT THIS TIME AND WAS INFORMED OF PT ECHO DONE ON 11/26/19 W/ EF: 60-65%. PER DR. LEYVA, REPEAT ECHO TO BE DONE.
--- NOTE | 2019-12-24 15:48 | NUR ---
Initial Nutrition Assessment: Beatriz Gudino - 64yo F - ICU 04 Trigger: Admitted with potential risk diagnosis. Dx: Uncontrolled DM, Hyperkalemia PMHx: DM, HTN, Bilateral Eye Blindness, A Fib, Pancreatitis, Hyperthyroidism, CAD, Bronchitis, PNA, GERD, Gastritis, OA, Chronic Renal Insufficiency, Osteoarthritis PSHx: Cancer Surgery x2, appendectomy Labs: Glu 243 (H), BUN 51.0 (H), ALK 250 (H), Lipase 464 (H), Meds: Remeron, Carafate, Levaquin (ATB), Reglan, Propranolol, Protonix, Tapazole, Meclizine, Humulin, Lovenox, Colace, Aspirin, Phenergan, Blood Glucose Test Strip, Sodium Chloride, [place], Nitrostat, Morphine Sulfate, Lorazepam. Diet: Clear Liquid Diet, CCHO 45gm PO intake since admission: Observed lunch of ~50% PO x 1 meal. Insufficient to determine if needs are met with 1 meal. Ht: 66" Wt: 92#/42kg BMI: 14.9 kg/m^2 (underweight) Bed scale: n/a IBW: 130#59kg %IBW: 71% UBW: 98#, per pt. Age: 64 yo Food Allergies: NKFA Skin condition: Not intact - L heel black dry wound. Matt: 16 Edema: No edema noted. 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 She was taken to the ED for an eval, she had positive troponin, sugar >900, extremely weak, and was admitted to the ICU for further treatments. Patient was recently admitted for diarrhea and released ~1 week ago. Patient denies any diarrhea at this time. RD Note (12/23): Pt was admitted here <30 days ago. Visited pt by bedside. Pt was upset at time because her sister is unable to visit. Few questionnaires were unable to be obtained, therefore were based off of previous assessment (<30days). However, pt agreed on having a physical exam done. Unable to assess upper arm, thoracic lumber, and scapular bone because patient was laying down. Observed moderate fat loss on orbital area with bones protruding. [place] region was visibly hollow with signs of scooping. Clavicle bone region were protruding. Hands with muscle loss. Knee caps had little signs of muscles, bones were visible. Anterior thigh region had little definition of muscle left, with mild depression. Calf had little signs of muscle left. No signs of edema. Some missing teeth were present. Unable to exam gums and tongue. Problem with: N/V/D/C: No, per pt. Problems with: Chewing: Swallowing: N/A - currently on clear liquid diet. Current appetite: n/a unable to ask - pt was upset. Recent wt change: wt loss compared to UBW reported by pt. %wt change: 6.1% wt loss. Vitamin/Supplement use: Per previous assessment, pt reported no vit/sup use. Special diet at home: Per previous assessment, pt reported that meals were prepared by her sister. Physical activity: Per previous assessment, pt likes walking. Nutrition education given (specify specific nutrition education and handout given): Per previous assessment, written education was provided to pt to provide to her sister. Food-drug interactions? Education given? n/a Estimated Nutritional Needs Based on body weight (42kg) Energy: 1470 - 1680 kcal/day (35-40 kcal/kg underweight) Protein: 53 - 63 g/day (1.25-1.5 g/kg underweight) Fluid: 1470 - 1680 mL/day (1 mL/kcal) Nutrition Diagnosis: 1.) Impaired nutrition utilization r/t endocrine dysfunction FLORY uncontrolled DM of glucose >900 upon admission. 2.) Chronic disease or condition related malnutrition r/t pathophysiological cause AEB BMI of 14.9, moderate fat loss on orbital area, severe muscle loss on anabaptist region, clavicle region, knee caps, anterior thigh region and calf. 3.) Increased energy and protein needs r/t pt being underweight AEB BMI of 14.9. Intervention 1. Recommend CCHO 45gm Diet, when pt is no longer on clear liquid diet. 2. Recommend Glucerna BID to provide an additional 440kcal and 20g protein per day, when pt is no longer on clear liquid diet. Monitor/Evaluate Goal: PO intake at least 75% of estimated needs Monitor: PO intake, Labs, GI function, Body Weight, Skin integrity F/U in 2-3 days as high risk 12/25 - 12/[address] by Nick Mars RD.
--- NOTE | 2019-12-24 15:50 | NUR ---
DR. LEYVA AT BEDSIDE TO ASSESS PATIENT. UPDATES PROVIDED AND POC DISCUSSED. PATIENT OKAY TO BE TRANSFERRED TO TELE. WILL CALL DR. FLAHERTY FOR ORDERS. WILL CONTINUE TO MONITOR.
--- NOTE | 2019-12-24 17:00 | NUR ---
TLC PICC INSERTED BY DR. PEREZ AT THIS TIME. LINES FLUSHING WELL W/ GOOD BLOOD RETURN. DRESSING APPLIED, CDI.
--- NOTE | 2019-12-24 17:45 | NUR ---
BLOOD GLUCOSE 42. D50 ADMINISTERED ORDERED PER EMAR. DR. FLAHERTY INFORMED. ORDERED FOR EVENING DOSE OF NPH INSULIIN TO BE HELD.
--- NOTE | 2019-12-24 17:57 | NUR ---
BLOOD GLUCOSE 245 S/P D50 IVP. TEMP: 94.2. WARM BLANKETS APPLIED. WILL CONTINUE TO MONITOR.
--- NOTE | 2019-12-24 19:20 | NUR ---
CARE ASSUMED FROM OUTGOING RN. REPORT RECEIVED FROM LOIDA IVERSON. PT RESTING COMFORTALY IN BED. NO ACUTE DISTRESS NOTED. EVEN AND UNLABORED RESPIRATIONS ON RA. HEART MONITOR READING AFIB AT 106BPM. RIJ PICC PATENT AND INTACT. [place] IN PLACE DRAINING VIA GRAVITY. BED IN LOWEST POSITION. SIDE RAILS UPX2. CALL LIGHT WITHIN REACH. WILL CONTINUE TO MONITOR.
--- NOTE | 2019-12-24 19:21 | NUR ---
CARE ENDORSED TO PHYSICS TECHNICIAN NURSE. UPDATES PROVIDED, ALL QUESTIONS ANSWERED.
--- NOTE | 2019-12-24 22:00 | NUR ---
PT TOLERATED SCHEDULED MEDICATION WELL. ASSISTED WITH CLEAR LIQUID DINNER, 75% COMPLETE. CLEANED PT UP POST BOWEL MOVEMENT, GREENISH/BROWN SEMILIQUID OUTPUT NOTED. OPTIFOAM TO SACRAL AREA REPLACED, CDI. REPOSITIONED PT TO RIGHT SIDE. BED IN LOWEST POSITION. WILL CONTINUE TO MONITOR.
[2019-12-25] VITALS (7 sets, daily range): BP systolic 108–146; BP diastolic 46–65
--- NOTE | 2019-12-25 | NUR ---
PT RESTING COMFORTABLY IN BED WITH EYES CLOSED, EASILY AROUSABLE. NO ACUTE DISTRESS NOTED. EVEN AND UNLABORED RESPIRATIONS ON RA. ON OVERCOIL STEPPER READING AFIB 108BPM. RIJ CENTRAL LINE, PATENT, DRESSING CDI. [place] IN PLACE DRAINING VIA GRAVITY. BED IN LOWEST POSITION. SIDE RAILS UPX2. CALL LIGHT WITHIN REACH. WILL CONITNUE TO MONITOR.
[2019-12-25 00:52] LABS: FREE T4 9.42 ng/dL (0.76-1.46); T4(THYROXINE) 25.8 ug/dL (4.7-13.3)
--- NOTE | 2019-12-25 01:08 | NUR ---
REPORT GIVEN TO ROSALINE MARISCAL, WILL TRANSFER PT TO TELEMETRY FLOOR VIA BED.
[2019-12-25 01:51] LABS: T3 TOTAL 7.27 ng/mL
--- NOTE | 2019-12-25 01:52 | NUR ---
RECEIVED PT BY THERON FROM ICU ACCOMPANIED BY TWO RN. PT AAOX4 AND DENIES THIBODEAUX/DIZZINESS. PT IS BLIND BILATERALLY. NO DRAINAGE NOTED OTHERWISE FOR EENT. PT ON TELE #13, AFIB WITH HR 110. PT DENIES CP/PRESSURE. PT PULSES PALPABLE AND CAP REFILL <3 SEC. PT LUNG SOUNDS CTA ON RA. PT BREATHING EVEN AND UNLABORED. PT DENIES SOB OR RESP DISTRESS. PT ABD SOFT AND FLAT WITH BOWEL SOUNDS ACTIVE X4. PT DENIES N/V/C/D. PT HAS [place] CATH IN PLACE DRAINING YELLOW URINE WITH 550CC OUTPUT NOTED. PT HAS GENERALIZED WEAKNESS AND IS BEDBOUND AT THIS TIME. PT HAS CLOSED WOUND TO LEFT HEEL, DRESSING CDI. PT HAS RIJ TRIPLE LUMEN WITH 0.45% NS INFUSING WELL AT 100ML/HR. RIJ DRESSING INTACT. REORIENTED PT TO ROOM AND CALL LIGHT. ALL NEEDS MET AT THIS TIME. CALL LIGHT WITHIN REACH. BED IN LOWEST POSITION. SIDE RAILS X2 UP. WILL CONTINUE TO MONITOR.
--- NOTE | 2019-12-25 05:11 | NUR ---
PT PULLED OUT RIJ, CATH INTACT. REMOVED SUTURES AND DRESSING AND APPLIED PRESSURE. NO EXCESSIVE BLEEDING OBSERVED. GAUZE AND TAPE APPLIED TO SITE. WILL CONTINUE TO MONITOR.
[2019-12-25 06:47] LABS: BASOPHIL % 0.2 % (0-2); PLATELET COUNT 184 x10^3mcL (130-400)
[2019-12-25 06:50] LABS: CALCIUM 9.6 mg/dL (8.5-10.1); CARBON DIOXIDE 25.8 mmol/L (21-32); CHLORIDE SERUM 109 mmol/L (98-107); CREATININE SERUM 0.9 mg/dL (0.6-1.0); GFR1 > 60 mL/min; GLUCOSE SERUM 98 mg/dL (74-106); POTASSIUM SERUM 4.3 mmol/L (3.5-5.1); SODIUM SERUM 144 mmol/L (136-145)
--- NOTE | 2019-12-25 06:54 | NUR ---
PT RESTED COMFORTABLY WITH EYES CLOSED IN INTERVALS THROUGHOUT THE SHIFT, EASILY AROUSABLE. PT PULLED OUT RIJ AND NEW IV INSERTION TO LFA 22G. RESUMED IVF AT THIS TIME. PT COMPLIED WITH NURSING CARE THROUGHOUT THE SHIFT. COMFORT AND SAFETY MEASURES MAINTAINED. ALL NEEDS AND CONCERNS ADDRESSED. WILL ENDORSE TO DAY SHIFT NURSE. WILL CONTINUE TO MONITOR.
--- NOTE | 2019-12-25 07:30 | NUR ---
RECEIVED PT FROM READING RECOVERY TEACHER RN. PT AOX4, RESPIRATIONS EVEN AND UNLABORED, NO SOB OR COUGH NOTED. LUNG SOUNDS CTA. BOWEL SOUNDS ACTIVE THROUGHOUT ALL QUADRANTS. [place] CATHETER IN PLACE AND DRAINING CLEAR YELLOW URINE. PT BED BOUND, GENERALIZED WEAKNESS. CLOSED WOUND TO RT HEEL, DRESSING CDI. PT DENIES PAIN AT THIS TIME. IV PATENT AND INFUSING, NO REDNESS OR SWELLING NOTED. CALL LIGHT IN REACH, WILL CONTINUE TO MONITOR.
--- NOTE | 2019-12-25 09:29 | NUR ---
PT TOOK ALL MEDICATION WITH SIPS OF WATER. TOLERATED WELL. PT CURRENTLY CRYING, STATING "WHY AM I STUCK IN THIS HOTEL?" REORIENTED PT TO LOCATION. CALL LIGHT IN REACH, WILL CONTINUE TO MONITOR.
--- NOTE | 2019-12-25 11:18 | NUR ---
PT HAD SMALL LOOSE STOOL. PT CHANGED AND REPOSITIONED SITTING UP IN BED. PT TEARFUL ASKING TO SPEAK WITH SISTER SHELLY. CALLED SISTER SHELLY, PT SPEAKING WITH SISTER. WILL CONTINUE TO MONITOR. CALL LIGHT IN REACH. BED IN LOWEST POSITION.
--- NOTE | 2019-12-25 11:27 | NUR ---
Echocardiogram completed.
--- NOTE | 2019-12-25 11:55 | NUR ---
SPOKE WITH DR. FLAHERTY, PER DR. FLAHERTY PT IS OKAY TO DISCHARGE HOME ONCE CLEARED BY DAMPPROOFER. PER DR. FLAHERTY PT IS TO TAKE HUMULOG 70/30 50 UNITS ONCE A DAY, PT IS TO STOP TAKING METOPROLOL AND TAKE PROPANOLOL AT HOME, PRESCRIPTION WRITTEN FOR DIFLUCAN TO TREAT YEAST IN URINE.
--- NOTE | 2019-12-25 13:58 | NUR ---
PT CALLING OUT FOR "CARLOS" REORIENTED PT TO PLACE AND TIME. PT TOOK ALL MEDS, TOLERATED WELL. CALL LIGHT IN REACH, WILL CONTINUE TO MONITOR.
--- NOTE | 2019-12-25 15:15 | NUR ---
PT SCREAMING AND YELLING. PT STATES "I JUST WANT TO GET THE FUCK OUT OF HERE. I WANT TO GO HOME. I AM GOING TO CALL 911 TO LEAVE." EXPLAINED TO PT IF SHE DECIDED TO LEAVE IT WOULD BE AGAINST MEDICAL ADVICE DUE TO NOT RECEIVING CLEARANCE FROM DR. LEYVA. PT STATES "I DONT GIVE A FUCK. I WILL CALL 911 ON YOUR ASS. IF YOUR GOING TO BE A BITCH, THEN GET OUT." PT REQUESTING TO SPEAK WITH SISTER SHELLY. CALLED SISTER SHELLY HAQ, SISTER SPEAKING WITH PT. WILL CONTINUE TO MONITOR. CALL LIGHT IN REACH. BED IN LOWEST POSITION.
--- NOTE | 2019-12-25 16:09 | NUR ---
WOUND CARE PROVIDED, REMOVED DRESSING WAS CDI. NO DRAINAGE OR SWELLING NOTED, NO REDNESS OR ODOR AROUND SITE. CLEANSED SITE WITH NS. GAUZE WET WITH BETADINE ORDERED THEN PATTED SITE WITH GAUZE. WOUND LEFT ERROL, LEG ELEVATED ON PILLOW. PT AWARE AND TOLERATED WELL. CALL LIGHT IN REACH, WILL CONTINUE TO MONITOR.
--- NOTE | 2019-12-25 19:25 | NUR ---
PT RECEIVED A/O X 3-4, ABLE TO MAKE NEEDS KNOWN. PT IS BLIND TO GRACE EYES. TELE #13, NSR, PT DENIES ANY CP/PRESSURE. PULSES PALPABLE, NO EDEMA PRESENT. BREATHING IS EVEN AND UNLABORED ON RA, NO RESP DISTRESS NOTED. ABD SOFT AND NONDISTENDED, PT DENIES ANY N/V. [place] CATH DRAINING TO GRAVITY, YELLOW URINE NOTED. GENERALIZED WEAKNESS, PT IS BEDBOUND. FALL PRECAUTIONS IN PLACE. DRSG IN PLACE TO LEFT HEEL, CDI. PT DENIES ANY PAIN AT THIS TIME. IVF INFUSING WELL TO LFA, SITE WNL. NO ACUTE DISTRESS NOTED. BED IN LOWEST SETTING, SIDE RAILS UP X2, CALL LIGHT WITHIN REACH. WILL CONT TO MONITOR.
--- NOTE | 2019-12-26 00:30 | NUR ---
PT RESTING IN BED WITH EYES CLOSED, BUT IS EASILY AROUSABLE. BREATHING IS EVEN AND UNLABORED, NO RESP DISTRESS NOTED. [place] CATH DRAINING TO GRAVITY, YELLOW URINE NOTED. IVF INFUSING WELL, SITE WNL. NO ACUTE DISTRESS NOTED. CALL LIGHT WITHIN REACH. WILL CONT TO MONITOR.
[2019-12-26 05:54] VITALS: BP 158/60
--- NOTE | 2019-12-26 06:32 | NUR ---
PT SLEPT WELL THROUGHOUT THE EVENING. BREATHING IS EVEN AND UNLABORED, NO RESP DISTRESS NOTED. PT DENIES HAVING ANY PAIN AT THIS TIME. [place] CATH IN PLACE DRAINING TO GRAVITY, [place] CARE GIVEN. IVF INFUSING WELL, SITE WNL. NO ACUTE CHANGES ENCOUNTERED DURING SHIFT. ALL NEEDS MET AND ANTICIPATED. FALL PRECAUTIONS IN PLACE. CALL LIGHT WITHIN REACH. WILL ENDORSE CARE TO AM NURSE.
[2019-12-26 07:57] VITALS: BP 175/54
--- NOTE | 2019-12-26 08:18 | NUR ---
RECEIVED PT FROM RIVET SPINNER RN. ALERT AND VERBALLY RESPONSIVE, ABLE TO MAKE NEEDS KNOWN. AOX3, FORGETFUL AND CONFUSED AT TIMES. BL BLINDESS NOTED. RESPIRATIONS EVEN AND UNLABORED, NO SOB OR COUGH NOTED, CHEST EXPANSION SYMMETRICAL. ON TELE #13 NSR HR 96 WITH HX OF AFIB. BOWEL SOUNDS ACTIVE THROUGHOUT, ABDOMEN SOFT AND FLAT, NON-DISTENDED, NON-TENDER. [place] CATHER IN PLACE. PT BEDBOUND WITH GENERALIZED WEAKNESS, PT ON FALL RISK. UNSTAGEABLE WOUND TO LT HEEL, DRESSING CDI, NO REDNESS OR SWELLING AROUND WOUND, SKIN OTHERWISE INTACT, WARM AND DRY. PT DENIES PAIN AT THIS TIME. IV SITE TO LFA PATENT, NO REDNESS OR SWELLING NOTED. CALL LIGHT IN REACH, WILL CONTINUE TO MONITOR.
--- NOTE | 2019-12-26 09:54 | NUR ---
PT SITTING UP IN BED, [place] OUTPUT 650ML. MEDICATIONS TAKEN AND TOLERATED WELL. CALL LIGHT IN REACH, WILL CONTINUE TO MONITOR.
[2019-12-26 11:41] VITALS: BP 150/61
--- NOTE | 2019-12-26 12:39 | NUR ---
[place] CATHETER REMOVED, TIP INTACT. PT TOLERATED WELL. OUTPUT OF 270 ML. PT C/O DIZZINESS, DR. FLAHERTY AWARE, TO ORDER PT'S HOME MEDICATION OF ANTIVERT. PT AWARE. CALL LIGHT IN REACH, WILL CONTINUE TO MONITOR.
--- NOTE | 2019-12-26 14:50 | NUR ---
CALLED AND SPOKE TO AND MADE HIM AWARE THAT (ASSISTANT PROFESSOR OF [employer]) HAD CLEARED PT FOR DISCHARGE HOME PER CARDIAC STANDPOINT. ORDERED OKAY TO D/C PT HOME. LI MARISCAL AND MARIUSZ RN ASSIGNED TO THIS PT MADE AWARE OF ABOVE.
[2019-12-26 15:28] VITALS: BP 143/59
[2019-12-26 15:37] VITALS: BP 143/59
--- NOTE | 2019-12-26 17:13 | NUR ---
PT DISCHARGED WITH TWIN SISTER VIA WHEELCHAIR. FAMILY MEMBER GIVEN INSTRUCTIONS REGARDING F/U WITH HER DOCTOR. EDUCATION GIVEN REGARDING STOPPING METOPROLOL AND NEW PRESCRIPTION OF ANTIBIOTIC. EDUCATED ON PROPER CARE TO BUTTOCKS AREA. ALL QUESTIONS ANSWERED.
== END 2019-12-26 16:56 | disposition home health service (06) | DRG 871 ==
LOC: ED 21:34 → IC 23:29 → DU 12-25 01:52
PROVIDERS: Emergency Medicine; Internal Medicine Cardiovascular Disease; ADMIT Internal Medicine
PROC: 02HV33Z Insertion of Infusion Device into Superior Vena Cava, Percutaneous Approach (ICD-10-PCS; principal; 2019-12-24)
PROC: B548ZZA Ultrasonography of Superior Vena Cava, Guidance (ICD-10-PCS; 2019-12-24)
DX: A41.9 Sepsis, unspecified organism (principal); E11.00 Type 2 diabetes mellitus with hyperosmolarity without nonketotic hyperglycemic-hyperosmolar coma (NKHHC); G93.41 Metabolic encephalopathy; E43 Unspecified severe protein-calorie malnutrition; I21.A1 Myocardial infarction type 2; N39.0 Urinary tract infection, site not specified; Z68.1 Body mass index [BMI] 19.9 or less, adult; E87.5 Hyperkalemia; I25.10 Atherosclerotic heart disease of native coronary artery without angina pectoris; I10 Essential (primary) hypertension; H54.7 Unspecified visual loss; D50.9 Iron deficiency anemia, unspecified; E11.51 Type 2 diabetes mellitus with diabetic peripheral angiopathy without gangrene; I48.0 Paroxysmal atrial fibrillation; E05.90 Thyrotoxicosis, unspecified without thyrotoxic crisis or storm; M19.90 Unspecified osteoarthritis, unspecified site; E86.0 Dehydration; K52.9 Noninfective gastroenteritis and colitis, unspecified; Z88.0 Allergy status to penicillin; Z88.5 Allergy status to narcotic agent; Z90.49 Acquired absence of other specified parts of digestive tract; Z83.3 Family history of diabetes mellitus; Z82.3 Family history of stroke; Z79.899 Other long term (current) drug therapy
CPT/HCPCS: 36556; 82962; 84439; C9113; G0378; J1642; J1650; J1815; J1956; J2270; J2405; J2550; J3490; J7030; J8597; Q0092

== ENCOUNTER 2020-01-01 01:03 | Emergency (ER) | payer OTHER ==
[~2020-01-01] VITALS: Ht 167.6 cm; Wt 44.5 kg
[2020-01-01 01:15] VITALS: Ht 167.6 cm; Wt 44.5 kg
[2020-01-01 02:13] LABS: BASOPHIL % 0.4 % (0-2); PLATELET COUNT 215 x10^3mcL (130-400)
[2020-01-01 02:15] LABS: RED CELL DISTRIBUTION WIDTH 14.9 % (11.5-14.5)
[2020-01-01 02:28] LABS: CALCIUM 10.6 mg/dL (8.5-10.1); CARBON DIOXIDE 32.3 mmol/L (21-32); CHLORIDE SERUM 103 mmol/L (98-107); CREATININE SERUM 0.9 mg/dL (0.6-1.0); GFR1 > 60 mL/min; GLUCOSE SERUM 74 mg/dL (74-106); POTASSIUM SERUM 5.2 mmol/L (3.5-5.1); SODIUM SERUM 141 mmol/L (136-145)
[2020-01-01 02:33] LABS: ALBUMIN 3.4 g/dL (3.4-5.0); ALKALINE PHOSPHATASE 190 U/L (46-116); ALT/SGPT 37 U/L (14-59); AST/SGOT 45 U/L (15-37); BILIRUBIN TOTAL 0.5 mg/dL (0.20-1.00); TOTAL PROTEIN, SERUM 7.9 g/dL (6.4-8.2)
[2020-01-01 05:48] LABS: UA SPECIFIC GRAVITY 1.015 (1.005-1.035); microscopic required? YES; urine erythrocyte TRACE (NEGATIVE)
[2020-01-01 08:38] VITALS: BP 117/45
== END 2020-01-01 08:38 | disposition home or self-care (01) ==
LOC: ED 01:03
PROVIDERS: Emergency Medicine
DX: R53.1 Weakness (principal); G89.29 Other chronic pain; I10 Essential (primary) hypertension; E11.9 Type 2 diabetes mellitus without complications; Z88.0 Allergy status to penicillin
CPT/HCPCS: 82962; J3010; Q0092

== ENCOUNTER 2020-04-07 18:03 | Emergency (ER) | payer OTHER ==
[~2020-04-07] VITALS: Ht 167.6 cm; Wt 44.5 kg
[2020-04-07 18:13] VITALS: Ht 167.6 cm; Wt 44.5 kg
[2020-04-07 21:02] VITALS: BP 152/59
== END 2020-04-07 21:02 | disposition home or self-care (01) ==
LOC: ED 18:03
DX: S39.012A Strain of muscle, fascia and tendon of lower back, initial encounter (principal); M54.42 Lumbago with sciatica, left side; I10 Essential (primary) hypertension; E11.9 Type 2 diabetes mellitus without complications; Z98.890 Other specified postprocedural states; Z90.89 Acquired absence of other organs; Z90.710 Acquired absence of both cervix and uterus; Z85.42 Personal history of malignant neoplasm of other parts of uterus; Z88.1 Allergy status to other antibiotic agents; Z88.0 Allergy status to penicillin; Z88.2 Allergy status to sulfonamides; X58.XXXA Exposure to other specified factors, initial encounter; Y93.89 Activity, other specified; Y92.89 Other specified places as the place of occurrence of the external cause; Y99.8 Other external cause status
CPT/HCPCS: J1885